=== PATIENT | male | born 1940 | race Two or more races ===

== ENCOUNTER 2020-09-15 19:34 | Emergency (ER) | payer MEDICARE, MEDICAID ==
[~2020-09-15] VITALS: Ht 193 cm; Wt 100.0 kg
[2020-09-15] MEDS ORDERED: CLONIDINE 0.2MG TABLET PO SCH (21:00)
[2020-09-15 22:35] VITALS: BP 169/69
[2020-09-15] MEDS ORDERED: AMLO5TAB88 MT (22:55)
== END 2020-09-15 23:12 | disposition home or self-care (01) ==
LOC: ER 19:34
DX: I10 Essential (primary) hypertension (principal); R60.0 Localized edema; Z88.0 Allergy status to penicillin
CPT/HCPCS: 93005; 99283